=== PATIENT | female | born 1980 | race Caucasian/White ===

== ENCOUNTER 2016-08-14 08:40 | Emergency (ER) | payer OTHER ==
[2016-08-14 09:11] VITALS: RESP 18; TEMP 98.2; O2SAT 100
[2016-08-14 09:12] VITALS: BMI 23.0
[2016-08-14] MEDS ORDERED: cefTRIAXone (Rocephin) 250 mg Inj IM STA (09:39)
--- NOTE | 2016-08-14 09:44 | ED PDOC ---
Arrival/HPI - General Time Seen by Provider: 08/14/16 09:39 Historian: Patient - History of Present Illness Narrative History of Present Illness (Text): 08/14/16 09:41 This 36 yo female presents to this ED c/o vaginal burning for 3 days. Patient stated she feels burning pain when she urinates and urine comes in contact with vaginal mucosa. Patient admits unprotected sex x 4 days ago. Patient denies vaginal discharge, vaginal lesion, fever, vaginal itching, urinary frequency, or urinary urgency. Patient admits menses for 3 days. Time/Duration: Other (3 days) Context: Home Past Medical History - Provider Review Nursing Documentation Reviewed: Yes - Infectious Disease Hx of Infectious Diseases: None - Tetanus Immunization Tetanus Immunization: Unknown - Past Medical History Past Medical History: No Previous - Psychiatric Hx Depression: No Hx Emotional Abuse: No Hx Physical Abuse: No Hx Substance Use: No - Past Surgical History Past Surgical History: No Previous - Surgical History Other/Comment: b/l eye surgery - Suicidal Assessment Feels Threatened In Home Enviroment: No Family/Social History - Physician Review Nursing Documentation Reviewed: Yes Family/Social History: No Known Family HX Smoking Status: Never Smoked Hx Alcohol Use: No Hx Substance Use: No Hx Substance Use Treatment: No Allergies/Home Meds Allergies/Adverse Reactions: Allergies No Known Allergies Allergy (Verified 03/06/15 10:24) Review of Systems - Review of Systems Constitutional: Normal. absent: Fatigue, Weight Change, Fevers Eyes: Normal ENT: Normal Respiratory: Normal. absent: SOB, Cough Cardiovascular: Normal. absent: Chest Pain, Palpitations Gastrointestinal: Normal. absent: Abdominal Pain, Nausea, Vomiting Genitourinary Female: Dysuria, Vaginal Bleeding (menses). absent: Frequency, Hematuria, Urine Output Changes, Vaginal Discharge Musculoskeletal: Normal Skin: Normal. absent: Rash, Pruritis, Skin Lesions, Laceration, Abscess, Cellulitis Neurological: Normal. absent: Headache, Dizziness Endocrine: Normal Hemo/Lymphatic: Normal Psychiatric: Normal Physical Exam Vital Signs Temp Pulse Resp BP Pulse Ox 08/14/16 11:22 78 18 114/80 100 08/14/16 09:11 98.2 F 76 18 112/77 100 Temperature: Afebrile Blood Pressure: Normal Pulse: Regular Respiratory Rate: Normal Appearance: Positive for: Well-Appearing, Non-Toxic, Comfortable Pain Distress: None Mental Status: Positive for: Alert and Oriented X 3 - Systems Exam Head: Present: Atraumatic, Normocephalic Pupils: Present: PERRL Extroacular Muscles: Present: EOMI Conjunctiva: Present: Normal Mouth: Present: Moist Mucous Membranes Neck: Present: Normal Range of Motion Genitourinary/Pelvic Exam: Present: Normal External Genitalia, Cervical os Closed, Other (mild menses bleeding. No tenderness. No vulvovaginal rash). No : Vaginal Discharge, Vaginal Lesions, Adenexal Tenderness, Adenexal Mass, Cervical Motion Tendernes, Odor Upper Extremity: Present: Normal Inspection, Normal ROM, NORMAL PULSES, Neurovascularly Intact, Capillary Refill < 2s Lower Extremity: Present: Normal Inspection, NORMAL PULSES, Deformity, Neurovascularly Intact, Capillary Refill < 2 s. No: Edema, CALF TENDERNESS Neurological: Present: GCS=15, CN II-XII Intact, Speech Normal Skin: Present: Warm, Dry, Normal Color. No: Rashes Lymphatic: No: Inguinal Adenopathy Psychiatric: Present: Alert, Oriented x 3, Normal Insight, Normal Concentration Medical Decision Making ED Course and Treatment: 08/14/16 11:23 Patient presents to this ED c/o vaginal burning. Vulvovaginatis is suspected. Pelvic exam was unremarkable, except for mild tenderness on labia. No ulcers, lesion, or cmt. Patient was treated prophylactic for GC/chlam., since patient is concern for STD. Patient was treated for candidiasis. Re-evaluation Time: 11:25 Reassessment Condition: Re-examined, Improved - Lab Interpretations Lab Results: Lab Results 08/14/16 09:59: Urine Color Yellow, Urine Appearance Sl cloudy, Urine pH 6.0, Ur Specific [place] 1.025, Urine Protein Trace H, Urine Glucose (UA) Negative, Urine Ketones Negative, Urine Blood Large H, Urine Nitrate Negative, Urine Bilirubin Negative, Urine Urobilinogen 0.2, Ur Leukocyte Esterase Moderate H, Urine RBC 1 - 3, Urine WBC 2 - 5, Ur Epithelial Cells 10 - 12, Urine Bacteria Few - Medication Orders Current Medication Orders: Discontinued Medications Azithromycin (Zithromax) 1,000 mg PO STAT STA PRN Reason: Protocol Stop: 08/14/16 09:41 Last Admin: 08/14/16 10:08 Dose: 1,000 mg Ceftriaxone Sodium (Rocephin) 250 mg IM STAT STA PRN Reason: Protocol Stop: 08/14/16 09:40 Last Admin: 08/14/16 10:08 Dose: 250 mg Fluconazole (Diflucan) 200 mg PO STAT STA PRN Reason: Protocol Stop: 08/14/16 09:41 Last Admin: 08/14/16 10:08 Dose: 200 mg Disposition/Present on Arrival - Present on Arrival Any Indicators Present on Arrival: No History of DVT/PE: No History of Uncontrolled Diabetes: No Urinary Catheter: No History Surgical Site Infection Following: None - Disposition Have Diagnosis and Disposition been Completed?: Yes Diagnosis: Vulvovaginitis Disposition: HOME/ ROUTINE Disposition Time: 11:26 Patient Plan: Discharge Patient Problems: Current Active Problems Problem Status Onset Vulvovaginitis Acute Condition: GOOD Discharge Instructions (ExitCare): Vaginitis (ED) Additional Instructions: Call private doctor for follow up visit in 1-2 days. Also call private [employer] or clinic for revaluation. Take medication as instructed. Always use protection , and lubricant for sexual intercourse. Return to emergency if symptoms worsen. Prescriptions: Cephalexin [cephalexin] 500 mg PO BID #10 cap Fluconazole [Diflucan] 150 mg PO ONCE #1 tab Referrals: [facility] [Outside] - [facility] with [facility] [[facility]] - Follow up with primary Forms: WORK NOTE
[2016-08-14 11:04] LABS: URINE BILIRUBIN NEGATIVE (NEGATIVE); URINE BLOOD LARGE (NEGATIVE); URINE GLUCOSE (UA) NEGATIVE (NEGATIVE); URINE KETONE NEGATIVE (NEGATIVE); URINE LEUKOCYTE ESTERASE MODERATE Leu/uL (NEGATIVE); URINE PROTEIN TRACE mg/dL (<30 mg/dL); URINE UROBILINOGEN 0.2 E.U./dL (<1 E.U./dL)
[2016-08-14 11:07] LABS: URINE APPEARANCE SL CLOUDY (CLEAR); URINE COLOR YELLOW (YELLOW)
[2016-08-14 11:11] LABS: URINE BACTERIA FEW (NEG)
[2016-08-14 11:22] VITALS: BP 114/80; PULSE 78
== END 2016-08-14 11:47 | disposition home or self-care (01) ==
LOC: ED 08:40
DX: N76.0 Acute vaginitis (principal)
CPT/HCPCS: 81001; 87086; 87181; 87491; 87591; 96372; 99284; J0696